=== PATIENT | male | born 1970 | race Caucasian/White ===

== ENCOUNTER 2023-12-15 20:43 | Inpatient (IN) | payer MEDICAID, OTHER ==
[~2023-12-15] VITALS: Ht 188 cm; Wt 101.7 kg
[2023-12-15 21:37] LABS: BASOPHILS # (AUTO) 0.1 X10'3 (0-0.2); BASOPHILS % (AUTO) 0.3 % (0-1); EOSINOPHILS % (AUTO) 0.2 % (0-6); HEMATOCRIT 45.6 % (42.0-52.0); HEMOGLOBIN 15.7 g/dl (14.0-17.9); LYMPHOCYTES # (AUTO) 2.3 X10'3 (1.1-4.8); MEAN CORPUSCULAR HEMOGLOBIN 30.3 PG (27.0-31.0); MEAN CORPUSCULAR HGB CONC 34.5 g/dL (33.0-36.5); MEAN CORPUSCULAR VOLUME 87.9 FL (78-98); MEAN PLATELET VOLUME 8.4 FL (7.4-10.4); MONOCYTES # (AUTO) 2.3 X10'3 (0-0.9); MONOCYTES % (AUTO) 10.8 % (2-12); NEUTROPHILS # (AUTO) 16.3 X10'3 (1.8-7.7); NEUTROPHILS % (AUTO) 77.7 % (42-75); PLATELET COUNT 194 X10'3 (140-440); RED BLOOD COUNT 5.19 X10'6 (4.70-6.10); RED CELL DISTRIBUTION WIDTH 14.1 % (11.5-14.5)
[2023-12-15] MEDS: normal saline 1000ML IV soln IV ONE (21:43)
[2023-12-15] MEDS: ondansetron 4mg rapidly disintigrating tab PO ONE (21:43)
[2023-12-15] MEDS: piperacillin/tazo 3.375gm/50ml 50 ML IV ONE (21:44)
[2023-12-15] MEDS: HYDROcodone/acetaminophen 10/325mg tab PO ONE (21:44)
[2023-12-15 21:46] LABS: ALBUMIN 3.1 G/DL (3.4-5.0); ANION GAP 10 (8-16); BLOOD UREA NITROGEN 12 MG/DL (7-18); BUN/CREATININE RATIO 13.6 (10.0-20.0); CALCIUM 9.1 MG/DL (8.5-10.1); CHLORIDE 91 MMOL/L (99-107); CREATININE 0.88 MG/DL (0.60-1.10); GLUCOSE 371 MG/DL (70-104); MAGNESIUM 1.7 MG/DL (1.5-2.4); POTASSIUM 3.8 MMOL/L (3.5-5.1); SODIUM 126 MMOL/L (135-145); eCRCL 113 ML/MIN; eGFR > 90 ML/MIN
[2023-12-15] MEDS ORDERED: iohexol 300mg/ml 100ml inj. ONE (22:09)
[2023-12-15] MEDS: normal saline 1000ml 1,000 ML IV ONE (23:40)
[2023-12-15] MEDS: vancomycin/NS 1 GM ADD-VANTAGE 250 ML IV ONE (23:40)
[2023-12-16] MEDS: TETanus/Pertussis (Acell)/Diphther VAC/PF (Tdap-Adult) 0.5ml syringe IMVAC ONE (00:18)
[2023-12-16 00:48] LABS: BILIRUBIN,URINE NEGATIVE (Neg); CLARITY,URINE CLEAR (Clear); COLOR,URINE YELLOW (Yellow); GLUCOSE, URINE >=1000 mg/dl (Neg); KETONES,URINE 40 mg/dl (Neg); LEUKOCYTE ESTERASE ,URINE NEGATIVE (Neg); NITRITES, URINE NEGATIVE (Neg); OCCULT BLOOD,URINE TRACE-INTACT (Neg); PROTEIN,URINE 100 mg/dl (Neg); UROBILINOGEN,URINE 0.2 E.U/dL (0.2-1.0)
[2023-12-16 01:00] LABS: UA COLLECTION TYPE CLN CATCH MIDSTREAM
[2023-12-16 01:02] LABS: BACTERIA,URINE FEW /HPF (Neg); MUCUS STRANDS FEW /LPF (Neg); SQUAMOUS EPITHELIAL CELL,UR FEW /LPF (FEW); WBC,URINE 0-4 /HPF (0-4)
[2023-12-16 01:03] LABS: CELLULAR CAST 0-4 /LPF (NEGATIVE)
[2023-12-16] MEDS: amLODIPine 5mg tablet PO ONE (01:36)
[2023-12-16] MEDS: hydrALAZINE 20mg/ml inj. IV ONE (02:39)
[2023-12-16] MEDS ORDERED: potassium Cl 20 mEq SR tablet PO PRN (02:50)
[2023-12-16] MEDS ORDERED: ondansetron/PF 4mg/2ml inj IV PRN (02:50)
[2023-12-16] MEDS ORDERED: magnesium hydroxide 30ml (MOM) UD suspension PO PRN (02:50)
[2023-12-16] MEDS ORDERED: potassium Cl 40MEQ/1/2NS 520ml 520 ML IV PRN (02:50)
[2023-12-16] MEDS: normal saline 1000ml 1,000 ML IV SCH (02:50)
[2023-12-16] MEDS ORDERED: magnesium 4gm in 100ml NS 100 ML IV PRN (02:50)
[2023-12-16] MEDS ORDERED: acetaminophen 325mg tablet PO PRN (02:50)
[2023-12-16] MEDS ORDERED: magnesium Cl slow-release 64mg tablet PO PRN (02:50)
[2023-12-16] MEDS ORDERED: mag hydrox/Alum hydrox/simeth 30ml oral suspension PO PRN (02:50)
[2023-12-16] MEDS ORDERED: magnesium 2GM in 50ml NS 50 ML IV PRN (02:50)
[2023-12-16] MEDS: labetalol 20mg/4ml (5mg/ml) syringe IV ONE (04:58)
[2023-12-16 04:59] LABS: URINE AMPHETAMINE SCREEN POSITIVE (Neg); URINE BARBITUATE SCREEN NEGATIVE (Neg); URINE BENZODIAZEPINES SCREEN NEGATIVE (Neg); URINE CANNABINOID SCREEN POSITIVE (Neg); URINE COCAINE SCREEN NEGATIVE (Neg); URINE METHADONE SCREEN NEGATIVE (Neg); URINE OPIATE SCREEN POSITIVE (Neg); URINE PHENCYCLIDINE SCREEN NEGATIVE (Neg)
[2023-12-16] MEDS: acetaminophen 1,000mg/100ml IV 100 ML IV PRN (05:03)
[2023-12-16] MEDS: piperacillin/tazo 3.375gm/50ml 50 ML IV SCH (06:02)
[2023-12-16 06:38] LABS: POTASSIUM 3.5 MMOL/L (3.5-5.1)
[2023-12-16 07:13] LABS: HEMOGLOBIN A1C > 12.0 % (4.5-6.2)
[2023-12-16 07:30] VITALS: BP 160/95; PULSE 99; RESP 20; TEMP 98; O2SAT 96
[2023-12-16] MEDS ORDERED: HYDROchlorothiazide 12.5mg capsule PO SCH (08:00)
[2023-12-16] MEDS ORDERED: amLODIPine 5mg tablet PO SCH ×2 (08:00→20:00)
[2023-12-16] MEDS: K and/or MAG REPLACEMENT MC SCH (08:30)
[2023-12-16 09:13] LABS: BASOPHILS # (AUTO) 0.1 X10'3 (0-0.2); BASOPHILS % (AUTO) 0.4 % (0-1); EOSINOPHILS % (AUTO) 0.1 % (0-6); HEMATOCRIT 44.1 % (42.0-52.0); LYMPHOCYTES # (AUTO) 1.9 X10'3 (1.1-4.8); MEAN CORPUSCULAR HEMOGLOBIN 30.3 PG (27.0-31.0); MEAN CORPUSCULAR VOLUME 88.9 FL (78-98); MEAN PLATELET VOLUME 8.1 FL (7.4-10.4); MONOCYTES # (AUTO) 1.9 X10'3 (0-0.9); MONOCYTES % (AUTO) 11.9 % (2-12); NEUTROPHILS # (AUTO) 12.1 X10'3 (1.8-7.7); NEUTROPHILS % (AUTO) 75.6 % (42-75); PLATELET COUNT 165 X10'3 (140-440); RED BLOOD COUNT 4.96 X10'6 (4.70-6.10); RED CELL DISTRIBUTION WIDTH 13.9 % (11.5-14.5)
[2023-12-16 09:34] LABS: ALANINE AMINOTRANSFERASE 340 U/L (12-78); ALBUMIN 2.5 G/DL (3.4-5.0); ALBUMIN/GLOBULIN RATIO 0.5 (1.1-1.5); ALKALINE PHOSPHATASE 128 IU/L (46-116); ANION GAP 11 (8-16); ASPARTATE AMINO TRANSFERASE 131 U/L (10-37); BILIRUBIN,TOTAL 3.7 MG/DL (0.1-1.0); BLOOD UREA NITROGEN 13 MG/DL (7-18); BUN/CREATININE RATIO 15.7 (10.0-20.0); CALCIUM 8.3 MG/DL (8.5-10.1); CHLORIDE 96 MMOL/L (99-107); CREATININE 0.83 MG/DL (0.60-1.10); GLUCOSE 312 MG/DL (70-104); POTASSIUM 3.6 MMOL/L (3.5-5.1); SODIUM 131 MMOL/L (135-145); TOTAL CARBON DIOXIDE 24.2 MMOL/L (24-32); TOTAL PROTEIN 7.4 G/DL (6.4-8.2); eCRCL 120 ML/MIN; eGFR > 90 ML/MIN
[2023-12-16 10:00] VITALS: BP 150/84; PULSE 100; RESP 26; TEMP 99; O2SAT 95
[2023-12-16] MEDS: vancomycin/NS 1 GM ADD-VANTAGE 250 ML IV SCH (10:20)
[2023-12-16] MEDS ORDERED: dextrose 50%-water 50ml dispensing syringe IV PRN ×2 (11:00)
[2023-12-16] MEDS ORDERED: DEXTROSE 15 GM of carb/4 tabs (each vial/BOTTLE has 4 tablets) PO PRN ×2 (11:00)
[2023-12-16] MEDS ORDERED: glucagon, human recombinant 1mg kit SUBCUT PRN (11:00)
[2023-12-16] MEDS: INSULIN LISPRO 100 UNIT/ML INSULN.PEN MULTI-DOSE SQ SCH (14:22)
[2023-12-16] MEDS: docusate sod 100mg capsule PO SCH (14:25)
[2023-12-16] MEDS: HYDROchlorothiazide 25mg tablet PO SCH (14:25)
[2023-12-16] MEDS: morphine 2 MG/ML inj. syringe IV PRN (17:17)
[2023-12-16 18:00] VITALS: BP 150/80; PULSE 101; RESP 17; TEMP 99.9; O2SAT 95
[2023-12-16] MEDS ORDERED: iohexol 300mg/ml 100ml inj. ONE (18:47)
[2023-12-16 19:00] VITALS: TEMP 101.3
[2023-12-16 20:00] VITALS: RESP 20
[2023-12-16] MEDS: enoxaparin 40mg/0.4ml syringe SUBCUT SCH (21:01)
[2023-12-16] MEDS: hydrALAZINE 20mg/ml inj. IV PRN (21:38)
[2023-12-16] MEDS: amLODIPine 5mg tablet PO SCH (21:38)
[2023-12-16] MEDS: insulin glargine (Lantus) pen - multi-dose SQ SCH (21:42)
[2023-12-16 22:00] VITALS: BP 170/89; PULSE 117; RESP 22; TEMP 100.2; O2SAT 97
[2023-12-17] MEDS: VANCOMYCIN LEVEL IV ONE (00:23)
[2023-12-17 06:00] VITALS: BP 157/87; PULSE 107; RESP 22; TEMP 99.3; O2SAT 96
[2023-12-17 07:30] VITALS: RESP 20
[2023-12-17 07:40] VITALS: BP_SYST 157; PULSE 98
[2023-12-17 08:14] LABS: BASOPHILS % (AUTO) 0.3 % (0-1); EOSINOPHILS % (AUTO) 0.3 % (0-6); HEMATOCRIT 41.8 % (42.0-52.0); HEMOGLOBIN 14.3 g/dl (14.0-17.9); LYMPHOCYTES # (AUTO) 1.6 X10'3 (1.1-4.8); LYMPHOCYTES % (AUTO) 11.2 % (21-51); MEAN CORPUSCULAR HEMOGLOBIN 30.5 PG (27.0-31.0); MEAN CORPUSCULAR HGB CONC 34.1 g/dL (33.0-36.5); MEAN CORPUSCULAR VOLUME 89.4 FL (78-98); MEAN PLATELET VOLUME 8.3 FL (7.4-10.4); MONOCYTES # (AUTO) 1.7 X10'3 (0-0.9); MONOCYTES % (AUTO) 11.5 % (2-12); NEUTROPHILS # (AUTO) 11.3 X10'3 (1.8-7.7); NEUTROPHILS % (AUTO) 76.7 % (42-75); PLATELET COUNT 186 X10'3 (140-440); RED BLOOD COUNT 4.68 X10'6 (4.70-6.10); RED CELL DISTRIBUTION WIDTH 13.9 % (11.5-14.5); WHITE BLOOD COUNT 14.8 X10'3 (4.5-11.0)
[2023-12-17 08:25] LABS: APTT 26 SECONDS (22-32); PROTHROMBIN TIME 10.9 SECONDS (9.0-12.0)
[2023-12-17 08:37] LABS: ALANINE AMINOTRANSFERASE 296 U/L (12-78); ALBUMIN 2.3 G/DL (3.4-5.0); ALBUMIN/GLOBULIN RATIO 0.5 (1.1-1.5); ALKALINE PHOSPHATASE 130 IU/L (46-116); ANION GAP 7 (8-16); ASPARTATE AMINO TRANSFERASE 139 U/L (10-37); BLOOD UREA NITROGEN 13 MG/DL (7-18); BUN/CREATININE RATIO 20.3 (10.0-20.0); CALCIUM 8.4 MG/DL (8.5-10.1); CHLORIDE 97 MMOL/L (99-107); CREATININE 0.64 MG/DL (0.60-1.10); GLUCOSE 224 MG/DL (70-104); MAGNESIUM 1.8 MG/DL (1.5-2.4); PHOSPHORUS 2.2 MG/DL (2.3-4.5); POTASSIUM 3.2 MMOL/L (3.5-5.1); SODIUM 132 MMOL/L (135-145); TOTAL CARBON DIOXIDE 28.5 MMOL/L (24-32); TOTAL PROTEIN 7.3 G/DL (6.4-8.2); eCRCL 155 ML/MIN; eGFR > 90 ML/MIN
[2023-12-17] MEDS: insulin Lispro (HumaLOG) vial - multi-dose SQ SCH (09:32)
[2023-12-17] MEDS: potassium Cl 20 mEq SR tablet PO PRN (09:32)
[2023-12-17] MEDS: morphine 2 MG/ML inj. syringe IV PRN (09:33)
[2023-12-17 10:30] VITALS: RESP 20
[2023-12-17] MEDS: chlorhexidine gluconate 15ml Cup****oral rinse MM SCH (14:02)
[2023-12-17] MEDS ORDERED: NO HOME MEDS (14:38)
[2023-12-17] MEDS: VANCOMYCIN 1,500MG in normal saline IV soln 300 ML IV SCH (17:29)
[2023-12-17] MEDS ORDERED: insulin glargine (Lantus) pen - multi-dose SQ SCH (21:00)
[2023-12-18 14:31] LABS: HBSAG SCREEN Negative (Negative); HEP B CORE AB, IGM Negative (Negative); HEP B CORE AB, TOT Positive (Negative)
[2023-12-18] MEDS ORDERED: VANCOMYCIN LEVEL IV ONE (15:30)
== END 2023-12-17 17:55 | disposition left against medical advice (07) | DRG 720 ==
LOC: ER 20:45 → ED HOLD 12-16 02:53 → ORTHO 4S 12-16 07:20
PROVIDERS: ADMIT Internal Medicine Critical Care Medicine; ATTEND Family Medicine
PROC: BN251ZZ Computerized Tomography (CT Scan) of Facial Bones using Low Osmolar Contrast (ICD-10-PCS; principal; 2023-12-15)
PROC: 3E0234Z Introduction of Serum, Toxoid and Vaccine into Muscle, Percutaneous Approach (ICD-10-PCS; 2023-12-15)
PROC: BN251ZZ Computerized Tomography (CT Scan) of Facial Bones using Low Osmolar Contrast (ICD-10-PCS; 2023-12-16)
DX: A41.9 Sepsis, unspecified organism (principal); E44.1 Mild protein-calorie malnutrition; E87.1 Hypo-osmolality and hyponatremia; E11.9 Type 2 diabetes mellitus without complications; I16.0 Hypertensive urgency; L03.211 Cellulitis of face; K02.9 Dental caries, unspecified; K04.7 Periapical abscess without sinus; Z23 Encounter for immunization; Z53.29 Procedure and treatment not carried out because of patient's decision for other reasons; Z68.28 Body mass index [BMI] 28.0-28.9, adult
CPT/HCPCS: 36415; 70487; 71045; 80048; 80053; 80202; 80305; 81001; 82948; 83036; 83605; 83735; 84100; 84132; 84145; 85025; 85610; 85730; 86704; 86705; 87040; 87081; 87340; 90471; 90715; 93005; 96365; 96367; 99285; A4615; A6590; G0378; J0131; J0360; J1650; J1815; J2270; J2543; J3370; J3490; J7030; J7040; Q9967